=== PATIENT | male | born 1975 | race Caucasian/White ===

== ENCOUNTER 2023-05-20 13:02 | Emergency (ER) | payer MEDICAID ==
[~2023-05-20] VITALS: Ht 170.2 cm; Wt 82.0 kg
[~2023-05-20 13:02] MED LIST: IBUP-2029 PO
[2023-05-20] MEDS ORDERED: ACET-2708 MT (13:41)
[2023-05-20 13:47] VITALS: BP 96/69; PULSE 103; RESP 16; TEMP 98.9; O2SAT 100
== END 2023-05-20 14:47 | disposition home or self-care (01) ==
LOC: ER 13:09
DX: M25.571 Pain in right ankle and joints of right foot (principal); E11.9 Type 2 diabetes mellitus without complications
CPT/HCPCS: 29515; 99283